=== PATIENT | male | born 1965 | race Caucasian/White ===

== ENCOUNTER 2023-11-19 11:00 | Emergency (ER) | payer MEDICAID ==
[~2023-11-19] VITALS: Ht 182.9 cm; Wt 133.3 kg
[2023-11-19 11:43] VITALS: BP 161/87; PULSE 97; RESP 16; TEMP 97.9; O2SAT 98
== END 2023-11-19 11:46 | disposition home or self-care (01) ==
LOC: ER 11:00
DX: H43.391 Other vitreous opacities, right eye (principal)
CPT/HCPCS: 99282

== ENCOUNTER 2024-03-04 08:20 | Emergency (ER) | payer MEDICAID ==
[~2024-03-04] VITALS: Ht 182.9 cm; Wt 130.4 kg
[2024-03-04 08:20] VITALS: TEMP 97.4
[2024-03-04] MEDS ORDERED: hydrocortisone sod succ/PF 250mg/2ml inj. IV ONE (08:35)
[2024-03-04] MEDS ORDERED: hydrocortisone sod succ/PF 100mg/2ml inj. IV ONE (08:55)
[2024-03-04] MEDS: diphenhydrAMINE 50 mg/ml inj IV ONE (09:02)
[2024-03-04] MEDS: epiNEPHrine 1 mg/ml inj IM STA (09:02)
[2024-03-04] MEDS: methylPREDNISolone sod succ/PF 40mg inj. IV SCH (09:02)
[2024-03-04] MEDS: methylPREDNISolone sod succ/PF 40mg inj. IV ONE (09:07)
[2024-03-04 09:12] LABS: BASOPHILS % (AUTO) 0.4 % (0-1); EOSINOPHILS # (AUTO) 0.2 X10'3 (0-0.9); EOSINOPHILS % (AUTO) 2.7 % (0-6); HEMATOCRIT 39.4 % (42.0-52.0); HEMOGLOBIN 13.1 g/dl (14.0-17.9); LYMPHOCYTES # (AUTO) 1.4 X10'3 (1.1-4.8); LYMPHOCYTES % (AUTO) 21.8 % (21-51); MEAN CORPUSCULAR HGB CONC 33.3 g/dL (33.0-36.5); MEAN CORPUSCULAR VOLUME 90.1 FL (78-98); MEAN PLATELET VOLUME 7.7 FL (7.4-10.4); MONOCYTES # (AUTO) 0.4 X10'3 (0-0.9); MONOCYTES % (AUTO) 6.3 % (2-12); NEUTROPHILS # (AUTO) 4.4 X10'3 (1.8-7.7); NEUTROPHILS % (AUTO) 68.8 % (42-75); PLATELET COUNT 274 X10'3 (140-440); RED BLOOD COUNT 4.37 X10'6 (4.70-6.10); RED CELL DISTRIBUTION WIDTH 13.7 % (11.5-14.5); WHITE BLOOD COUNT 6.4 X10'3 (4.5-11.0)
[2024-03-04 09:14] LABS: ALBUMIN 3.4 G/DL (3.4-5.0); ANION GAP 5 (8-16); BLOOD UREA NITROGEN 14 MG/DL (7-18); BUN/CREATININE RATIO 16.9 (10.0-20.0); CALCIUM 8.4 MG/DL (8.5-10.1); CHLORIDE 105 MMOL/L (99-107); CREATININE 0.83 MG/DL (0.60-1.10); GLUCOSE 113 MG/DL (70-104); POTASSIUM 3.3 MMOL/L (3.5-5.1); SODIUM 139 MMOL/L (135-145); TOTAL CARBON DIOXIDE 29.1 MMOL/L (24-32); eCRCL 103 ML/MIN; eGFR > 90 ML/MIN
[2024-03-04] MEDS: famotidine/PF IV inj 20 MG in normal saline 100ml IV soln 100 ML IV ONE (09:28)
[2024-03-04] MEDS ORDERED: PRED10TA23 PO (10:32)
[2024-03-04] MEDS ORDERED: FAMO20TA8 PO (10:32)
[2024-03-04 10:35] VITALS: BP 128/63; PULSE 77; RESP 16; O2SAT 98
== END 2024-03-04 10:43 | disposition home or self-care (01) ==
LOC: ER 08:20
DX: T78.40XA Allergy, unspecified, initial encounter (principal); X58.XXXA Exposure to other specified factors, initial encounter
CPT/HCPCS: 36415; 80048; 85025; 96365; 96372; 96375; 99284; J0171; J1200; J2919; J3490